=== PATIENT | female | born 1950 | race Caucasian/White ===

== ENCOUNTER → 2023-12-16 13:12 | Outpatient (REF) | payer MEDICARE, OTHER, SELFPAY | LOC: WDC 13:12 | PROVIDERS: ATTENDING PHYSICIAN Family Medicine | DX: Z12.31 Encounter for screening mammogram for malignant neoplasm of breast (principal) | CPT/HCPCS: 77063; 77067 ==

== ENCOUNTER 2024-10-18 19:27 | Emergency (ER) | payer MEDICARE, OTHER, SELFPAY ==
[2024-10-18 19:30] VITALS: BP 196/99
[2024-10-18 19:47] LABS: Hematocrit 40.5 % (37.0-47.0); Hemoglobin 14.2 g/dL (12.0-16.0); Mean Corp Hgb Conc. 35.1 g/dL (33.0-37.0); Mean Corpuscular Volume 92.3 fL (81.0-99.0); Nucleated Red Blood Cells % 0 %; Platelet Count 205 10^3/uL (130-400); Red Cell Dist. Width 12.8 % (11.5-14.5)
[2024-10-18 20:04] LABS: ALT (SGPT) 31 U/L (0-35); AST (SGOT) 26 U/L (14-36); Albumin 4.8 g/dl (3.5-5.0); Alkaline Phosphatase 74 U/L (38-126); Blood Urea Nitrogen 19 mg/dl (7-17); Calcium 9.3 mg/dl (8.4-10.2); Carbon Dioxide 20 mmol/L (22-30); Chloride 110 mmol/L (98-107); Glucose 109 mg/dl (70-99); Lipase 72 U/L (23-300); Potassium 4.2 mmol/L (3.5-5.1); Sodium 137 mmol/L (135-145); Total Protein 7.7 g/dl (6.3-8.2); eGFR > 60.00
[2024-10-18 20:44] VITALS: BP 160/83
[2024-10-18 21:00] VITALS: BP 182/82
[2024-10-18 22:00] VITALS: BP 164/77
--- NOTE | 2024-10-18 22:42 | ED.GENMED ---
History of Present Illness
<Adrian Stapleton PA-C - Last Filed: 10/19/24 16:35>
General
Chief Complaint: Abdominal Pain
Time Seen by Provider: 10/18/24 20:48
History of Present Illness
History of Present Illness:
74-year-old female with history of hypertension and gastric ulcers presents to the emergency department for evaluation of generalized abdominal discomfort that seems to wax and wane over the past several days. No obvious factors that palliate or
provoke her symptoms. She does note that pain seem to worsen after eating [place] with Bolognese sauce tonight. Prior abdominal surgery includes partial gastrectomy due to a stomach ulcer approximately 15 years ago as well as relatively recent
appendectomy with partial cecectomy. No fevers, chills, sweats, nausea, vomiting, or diarrhea.
Past History
<Adrian Stapleton PA-C - Last Filed: 10/19/24 16:35>
Past History
ED Past Medical History: HTN
ED Past Surgical History: Other (Partial gastrectomy)
Social History
Tobacco: Non-smoker
Alcohol: Occasional
Drug: None
Personal:
Living: with family
Review of Systems
<Adrian Stapleton PA-C - Last Filed: 10/19/24 16:35>
Review of Systems
Allergies reviewed?: Yes
All Other Systems: ROS reviewed and negative except as documented in HPI and ROS
Phy Exam
<Adrian Stapleton PA-C - Last Filed: 10/19/24 16:35>
Physical Exam
Physical Exam:
GEN: Well appearing, NAD, WDWN
HEENT: Oral mucosa moist, no scleral icterus
Cardiac: Regular rate
Lung: No respiratory distress, no tachypnea
Abdomen: Soft, moderate epigastric tenderness, no rigidity or peritoneal sign
MSK: No gross deformity or injuries
Skin: Good color, no pallor or jaundice, no rashes
Neuro: AO x3, moves all extremities freely
Psych: Calm, cooperative
Course
<Adrian Stapleton PA-C - Last Filed: 10/19/24 16:35>
Orders/Labs/Results
Orders:
Orders
10/18/24 19:38
Complete Blood Count/With Diff Urgent
Comprehensive Metabolic Panel Urgent
Lipase Urgent
10/18/24 21:46
US Abdomen Complete/Upper Urgent
Comment:
Reason For Exam: biliary colic
10/18/24 22:44
Ketorolac [Toradol] 30 mg IM NOW STA
10/18/24 23:14
Oxycodone [Roxicodone] 5 mg PO NOW STA
Abnormal Lab Results
10/18/24
19:38
MCH 32.3 H pg
(27.0-31.0)
Chloride 110 H mmol/L
(98-107)
Carbon Dioxide 20 L mmol/L
(22-30)
BUN 19 H mg/dl
(7-17)
Glucose 109 H mg/dl
(70-99)
10/18/24 19:38
10/18/24 19:38
Vital Signs
Initial and Last Documented VS:
Initial Vital Signs
Temp Pulse Resp BP Pulse Ox
98.1 F 70 20 196/99 97
10/18/24 19:30 10/18/24 19:30 10/18/24 19:30 10/18/24 19:30 10/18/24 19:30
Last Documented Vital Signs
Temp Pulse Resp BP Pulse Ox
98.1 F 58 15 139/74 94
10/18/24 19:30 10/19/24 01:00 10/19/24 01:00 10/19/24 01:00 10/19/24 01:00
<Kristin Bolaños PA-C - Last Filed: 10/19/24 00:49>
Orders/Labs/Results
Orders:
Orders
10/18/24 19:38
Complete Blood Count/With Diff Urgent
Comprehensive Metabolic Panel Urgent
Lipase Urgent
10/18/24 21:46
US Abdomen Complete/Upper Urgent
Comment:
Reason For Exam: biliary colic
10/18/24 22:44
Ketorolac [Toradol] 30 mg IM NOW STA
10/18/24 23:14
Oxycodone [Roxicodone] 5 mg PO NOW STA
Abnormal Lab Results
10/18/24
19:38
MCH 32.3 H pg
(27.0-31.0)
Chloride 110 H mmol/L
(98-107)
Carbon Dioxide 20 L mmol/L
(22-30)
BUN 19 H mg/dl
(7-17)
Glucose 109 H mg/dl
(70-99)
10/18/24 19:38
10/18/24 19:38
Vital Signs
Initial and Last Documented VS:
Initial Vital Signs
Temp Pulse Resp BP Pulse Ox
98.1 F 70 20 196/99 97
10/18/24 19:30 10/18/24 19:30 10/18/24 19:30 10/18/24 19:30 10/18/24 19:30
Last Documented Vital Signs
Temp Pulse Resp BP Pulse Ox
98.1 F 58 15 139/74 94
10/18/24 19:30 10/19/24 01:00 10/19/24 01:00 10/19/24 01:00 10/19/24 01:00
<Adrian Stapleton PA-C - Last Filed: 10/19/24 16:35>
MDM/Problems Addressed
MDM/Problems Addressed:
Patient's ultrasound was done suspected etiology to her symptoms. Pain did not resolve with Toradol thus we will inspector electromechanical oxycodone. To high suspicion that the patient require admission for surgical consultation given the persistence of her pain
however if pain is resolved with oxycodone certainly would be suitable for outpatient surgical follow-up. Will sign out to overnight stocker team pending reassessment
<Adrian Stapleton PA-C - Last Filed: 10/19/24 16:35>
*Pulse Oximetry
SaO2: 96
Oxygen Mode of Delivery: Room air
<Kristin Bolaños PA-C - Last Filed: 10/19/24 00:49>
*Pulse Oximetry
Patient hypoxic: no
*Critical Care Note
Total Time (30-74mins, 75-104mins- exclusive of procedures): Not Applicable
<Kristin Bolaños PA-C - Last Filed: 10/19/24 00:49>
Update Note
Update Note:
I received patient in signout. On my evaluation, patient is well-appearing in no acute distress. She rates her abdominal pain a 5 out of 10 but states it is much worse earlier and she is feeling better. I did discuss plan with Jose SHIRLEY prior to
shift end. I did offer admission for surgical consult and further pain control. We had a long discussion. Patient feels that she can go home at this point and will continue to monitor her symptoms and return if symptoms worsen. Discussed dietary
changes. Patient given outpatient follow-up for general surgery.
ED Attending Note
<Adrian Stapleton PA-C - Last Filed: 10/19/24 16:35>
-
Portions of this chart may have been created with voice recognition software.� Occasional wrong word or��sound alike� substitutions may have occurred due to the inherent limitations of voice recognition software.
Discharge Plan
Departure
Patient Disposition: Home (Routine Discharge)
Date of Disposition: 10/19/24
Time of Disposition: 00:47
Patient with high blood pressure during this ER visit?: Yes
Condition: Good
Discharge Problem:
Cholelithiasis
Instructions: Gallstones - ED (DC), BLOOD PRESSURE
Prescriptions:
No Action
losartan 100 mg Tablet
100 mg PO DAILY
multivitamin Tablet
1 tab PO DAILY
Referrals:
Susu Friedman MD [Family Provider, Family Practice]
Leandro Jackson MD [Active, Surgical]
Activity Restrictions/Additional Instructions:
As discussed, your blood work is unremarkable. Your ultrasound showed gallstones. Please call the attached number to schedule appointment to see general surgery as outpatient Dr. Jackson's office. Oxycodone has been sent to your pharmacy you can
take 1 tablet every 4-6 hours as needed for pain. Please stick to a bland nonfatty diet for the next few days. Please continue to monitor your symptoms.
PLEASE RETURN TO THE ER SHOULD YOU DEVELOP FEVERS OR CHILLS, ACUTE WORSENING RETURN OF YOUR PAIN, SURROUNDING REDNESS, CHEST PAIN, SHORTNESS OF BREATH, INTRACTABLE NAUSEA OR VOMITING, OR ANY OTHER SIGNS OR SYMPTOMS WORRISOME TO YOU.
Interventions
Interventions:
*Risk Screen - Suicide Last Done: 10/18/24 20:32
*General Assessment Last Done: 10/18/24 19:30
*Neglect/Abuse Screening Last Done: 10/18/24 20:32
*ED- Fall Risk Assessment Last Done: 10/18/24 20:32
*ED COVID-19 Vaccine History Last Done: 10/18/24 20:32
*Nursing Disposition Last Done: 10/19/24 01:03
FX-Wczneu-Fbxueexdcv Assessment Last Done: 10/18/24 20:32
Discharge Date and Time
Discharge Date/Time: 10/19/24 01:08
Print Language: CROATIAN
[2024-10-18] MEDS: TORADOL 30 MG IM (22:55)
[2024-10-18] MEDS: ROXICODONE 5 MG PO (23:19)
[2024-10-19] VITALS: BP 150/67
[2024-10-19 01:00] VITALS: BP 139/74
== END 2024-10-19 01:08 | disposition home or self-care (01) ==
LOC: EMR 19:27
PROVIDERS: Emergency Medicine; EMERGENCY PHYSICIAN Student in an Organized Health Care Education/Training Program; FAMILY PHYSICIAN Family Medicine
DX: K80.20 Calculus of gallbladder without cholecystitis without obstruction (principal); I10 Essential (primary) hypertension; Z90.3 Acquired absence of stomach [part of]; Z90.49 Acquired absence of other specified parts of digestive tract
CPT/HCPCS: 99284; 96372; 76700; 80053; 83690; 85025

== ENCOUNTER 2024-10-19 16:53 | Day surgery (SDC) | payer MEDICARE, OTHER, SELFPAY ==
[2024-10-19] VITALS (17 sets, daily range): BP systolic 119–189; BP diastolic 65–97; BMI 29.5; BMI 28.5
--- NOTE | 2024-10-19 11:41 | ED.GENMED ---
History of Present Illness
General
Chief Complaint: Abdominal Pain
Source: patient and spouse
Exam Limitations: none
Time Seen by Provider: 10/19/24 11:41
Nursing documentation reviewed up to this point in time: agreed with
History of Present Illness
History of Present Illness:
The patient is a pleasant 74-year-old female with a past medical history of high blood pressure who comes in with complaints of 2 to 3 days of upper abdominal pain radiating towards her right shoulder. Patient reports associated nausea. She denies
fevers and chills. Patient reports she was evaluated in the ED yesterday and diagnosed with a gallstone. She reports she felt better went home, but ever since waking up today, the pain is severe and is associated with nausea. Pain has been
constant.
Past History
Past History
ED Past Medical History: HTN
ED Past Surgical History: Other (Partial gastrectomy)
Social History
Tobacco: Non-smoker
Alcohol: Occasional
Drug: None
Personal:
Living: with family
Family History
Family History: Other
Review of Systems
Review of Systems
Allergies reviewed?: Yes
All Other Systems: ROS reviewed and negative except as documented in HPI and ROS
Constitutional: Reports no symptoms
EENT: Reports no symptoms
Respiratory: Reports no symptoms
Cardiac: Reports no symptoms
ABD/GI: Reports abdominal pain and nausea
: Reports no symptoms
Musculoskeletal: Reports no symptoms
Neurological: Reports no symptoms
Endocrine: Reports no symptoms
Hematologic/Lymphatic: Reports no symptoms
Psychiatric: Reports no symptoms
Phy Exam
Physical Exam
Physical Exam:
Physical Exam
General: no apparent distress, not acutely ill
Neck: supple. no meningeal signs. normal psoterior pharynx
Heart: s1/s2 regular rate and rhythm, no murmur. equal radial pulses.
Lungs: no acute respiratory distress. clear bilaterally
Abdomen: Normal bowel sounds. Soft. Right upper quadrant tenderness without rebound or guarding
Neuro: alert and oriented. no focal neurological deficits
Skin: no rash
Psychiatric: well kept. interactive and cooperative
Extremities: no edema. no calf tenderness. negative homans. good distal pulses
Course
Orders/Labs/Results
Orders:
Orders
10/19/24 11:42
US Abdomen Limited Urgent
Reason For Exam: upper ab pain
10/19/24 12:24
Complete Blood Count/With Diff Urgent
Comprehensive Metabolic Panel Urgent
Lipase Urgent
10/19/24 12:42
Morphine Sulfate 4 mg .ROUTE .STK-MED ONE
Ondansetron Injectable [Zofran] 4 mg .ROUTE .STK-MED ONE
10/19/24 12:46
Morphine Sulfate 4 mg IV NOW STA
Ondansetron Injectable [Zofran] 4 mg IV NOW STA
Abnormal Lab Results
10/19/24
12:24
RBC 4.02 L 10^6/uL
(4.20-5.40)
MCH 32.6 H pg
(27.0-31.0)
Lymphocytes % 19.5 L %
(20.5-51.1)
Chloride 108 H mmol/L
(98-107)
Glucose 107 H mg/dl
(70-99)
10/19/24 12:24
10/19/24 12:24
Vital Signs
Initial and Last Documented VS:
Initial Vital Signs
Temp Pulse Resp BP Pulse Ox
98.6 F 61 18 189/97 97
10/19/24 11:16 10/19/24 11:16 10/19/24 11:16 10/19/24 11:16 10/19/24 11:16
Last Documented Vital Signs
Temp Pulse Resp BP Pulse Ox
98.6 F 61 18 155/71 95
10/19/24 11:16 10/19/24 11:16 10/19/24 11:16 10/19/24 15:07 10/19/24 15:15
MDM/Problems Addressed
Differential Diagnosis Includes:
Biliary colic, acute cholecystitis, acute pancreatitis
MDM/Problems Addressed:
Patient presents with acute right upper quadrant pain
Acute Exacerbation and/or Progression of Chronic Illness:
Patient is acutely hypertensive, however, there is no sign of heart failure or stroke. Blood pressure is improved now that we have given her something for pain.
Acute Exacerbation and/or Progression of Chronic Illness: HTN
*Radiology
Radiology exam reviewed: radiology read reviewed
*Pulse Oximetry
SaO2: 97
Oxygen Mode of Delivery: Room air
Patient hypoxic: no
Comment: 97% on room air
*EKG
Interpreted by ED Provider?: NA
*Mold Repair Technician Interpretation
Rate: normal
Interpretation: normal
Rhythm: sinus
*Critical Care Note
Total Time (30-74mins, 75-104mins- exclusive of procedures): Not Applicable
Data Reviewed
Review of Other/Old Records Reveals: Radiology Studies (Ultrasound reviewed from yesterday which shows gallstone in neck of gallbladder)
Source: patient and spouse
Patient Management
Social determinants of health affecting care: Living situation and Strong social support
Discussion with other providers: Other (Dr. Jackson made aware of the patient. He reports that when he can, he will come to the ED to evaluate patient)
ED Attending Note
-
Portions of this chart may have been created with voice recognition software.� Occasional wrong word or��sound alike� substitutions may have occurred due to the inherent limitations of voice recognition software.
Discharge Plan
Departure
Patient Disposition: Other
Date of Disposition: 10/19/24
Time of Disposition: 15:30
Admit to: Med/Surg
Patient with high blood pressure during this ER visit?: Yes
Condition: Good
Covid-19: Not Applicable
Discharge Problem:
Biliary colic
Prescriptions:
No Action
losartan 100 mg Tablet
100 mg PO DAILY
multivitamin Tablet
1 tab PO DAILY
Referrals:
Susu Friedman MD [Family Provider, Family Practice]
Interventions
Interventions:
*Risk Screen - Suicide Last Done: 10/19/24 11:16
*General Assessment Last Done: 10/19/24 11:16
*Neglect/Abuse Screening Last Done: 10/19/24 11:16
*ED- Fall Risk Assessment Last Done: 10/19/24 12:27
*ED COVID-19 Vaccine History Last Done: 10/19/24 12:27
KV-Rorvdi-Ytojiqzapt Assessment Last Done: 10/19/24 11:25
Discharge Date and Time
Print Language: FRENCH
[2024-10-19 12:40] LABS: Hematocrit 37.9 % (37.0-47.0); Hemoglobin 13.1 g/dL (12.0-16.0); Mean Corp Hgb Conc. 34.6 g/dL (33.0-37.0); Mean Corpuscular Volume 94.3 fL (81.0-99.0); Nucleated Red Blood Cells % 0 %; Platelet Count 181 10^3/uL (130-400); Red Cell Dist. Width 12.7 % (11.5-14.5)
[2024-10-19] MEDS: MORPHINE SULFATE 4 MG IV (12:52)
[2024-10-19] MEDS: ZOFRAN 4 MG IV ×2 (12:53→19:58)
[2024-10-19 12:54] LABS: ALT (SGPT) 30 U/L (0-35); AST (SGOT) 24 U/L (14-36); Albumin 4.2 g/dl (3.5-5.0); Alkaline Phosphatase 63 U/L (38-126); Blood Urea Nitrogen 17 mg/dl (7-17); Calcium 9.1 mg/dl (8.4-10.2); Carbon Dioxide 26 mmol/L (22-30); Chloride 108 mmol/L (98-107); Estimated Creatinine Clearance 87 ml/min; Glucose 107 mg/dl (70-99); Lipase 47 U/L (23-300); Potassium 4.0 mmol/L (3.5-5.1); Sodium 137 mmol/L (135-145); Total Protein 6.9 g/dl (6.3-8.2); eGFR > 60.00
--- NOTE | 2024-10-19 16:22 | W.PN.UPDATE ---
Addendum entered and electronically signed by Leandro Jackson MD 10/19/24 16:28:
SHx antrectomy for PUD and lap appy more recently, supraumbilical midline scar 6cm, well healed
Original Note:
Update Note
Progress Note Update
Pt seen and evaluated at bedside. 3 days of abd pain, intermittent but today it is persistent. In ED 2 days ago and DC'ed but returned due to ongoing pain. On exam there is ttp to epigastrium and less to the RUQ. AFVSS and labs unremarkable. US
shows stones but no stigmata of ACC. Plan to admit for obs overngiht and tentatively for lap stefany tomorrow. D/w pt and at bedside. Full consult note to follow.
[2024-10-19] MEDS: LOVENOX 40 MG SC (17:56)
[2024-10-19] MEDS: DILAUDID 1 MG IV (17:56)
[2024-10-19] MEDS: NORMOSOL-R/PLASMALYTE-A 1000 IV (17:57)
[2024-10-20] VITALS (11 sets, daily range): BP systolic 133–161; BP diastolic 66–87
[2024-10-20] MEDS: ZOFRAN 4 MG IV ×3 (02:01→21:10)
[2024-10-20] MEDS: DILAUDID 1 MG IV ×3 (02:01→21:11)
[2024-10-20] MEDS: NORMOSOL-R/PLASMALYTE-A 1000 IV (04:04)
[2024-10-20] MEDS: NSS (PRESERVATIVE FREE) 10 ML IV (08:08)
[2024-10-20] MEDS: PROTONIX IV 40 MG IV (08:08)
[2024-10-20 08:57] LABS: Hepatitis C Antibody Negative (Negative)
[2024-10-20] MEDS: LEVAQUIN 150 IV (09:36)
--- NOTE | 2024-10-20 09:54 | HPS.HSE ---
Addendum entered and electronically signed by Red Pretty MD 10/20/24 10:34:
Patient seen and examined.
Patient is a 74 yo F with a PMH HTN, HLD, s/p open partial gastrectomy for ulcerative disease in 2009 at [facility], and s/p laparoscopic appendectomy by Dr. Ry Olguin in 2022. Ms. Stevenson presents with intermittent upper abdominal pain over
the past week. She states that her symptoms began initially last Wednesday after eating an arugula salad. Abdominal pain was intermittent and lingered throughout the next few days. Abdominal pain located in the epigastrium with radiation to the RUQ
and LUQ. No further clear association with oral intake. Some radiation of pain to the RIGHT shoulder. Limited to oral intake during this time. On Wednesday (10/18) she states that her abdominal pain significantly worsened prompting presentation
to the ED. She was diagnosed with symptomatic cholelithiasis at that time. Her abdominal discomfort improved with medications. She was ultimately discharged with outpatient follow-up. Since discharge her abdominal pain has returned prompting
brief presentation. Associated nausea, but no episodes of vomiting. No fevers or chills. She denies any jaundice, pale stools, or tea colored urine.
Gen: NAD
Abd: soft, mild tenderness in upper abdomen, ND, non-peritoneal, upper midline incision well healed
Labs and US imaging reviewed
Patient is a 74 yo F p/w symptomatic cholelithiasis possible acute cholecystitis
The natural history and pathophysiology of biliary stone disease was discussed. Anatomy was reviewed. Workup thus far including labs and imaging were reviewed. Options for management were reviewed. Given her persistent symptoms recommend
cholecystectomy.
Plan for a laparoscopic cholecystectomy with possible cholangiogram. The procedure itself, as well as the risks, benefits, and alternatives was discussed. Specifically, we discussed the risk of bleeding, infection, injury to surrounding structures
(bowel, bile ducts), CBD injury, need for open procedure. Typical postprocedural recovery including pain management and the 10 to 20% risks of fluctuations of GI function were discussed. All questions answered. Consent signed.
-- Lap stefany with IOC
-- NPO, IVF
-- Antibiotics: Levo Flagyl
Original Note:
Family Physician
-
Family Physician: Susu Friedman
Chief Complaint
-
abdominal pain
History of Present Illness
Ms Stevenson is a 74 yo female with a h/o HTN, HLD and appendectomy 2022, and partial gastrectomy for a calcified ulcer in 2009 who presented yesterday through the ED for ongoing intermittent epigastric pain. She notes that about one week ago, she
had severe pain to the epigastrium after dining out. It persisted into the next day but then improved. The pain returned again on 3-4 days ago and has been recurrent on and off since sometimes radiating into her right shoulder and back and sometimes
over to the RUQ. She was out of state visiting family in [place] and waited until she returned to present to the ED. She has tolerated very little oral intake over the past week with occasional nausea but no vomiting. She denies acholic stools or
dark urine. She denies fevers or chills. She is nontender on exam. She initially presented on 10/18/24 through the ED with gallstones noted on US without evidence of cholecystitis at that time and was discharged to home with instructions to follow
with surgery as an outpatient for biliary colic. Unfortunately, her symptoms recurred causing her to present yesterday once again through the ED for evaluation.
Medical History
Past Medical History
Past Medical History: Reports HTN, Hypercholesterolemia and Other (calcified ulcer tx surgically in 2009)
Past Surgical History: Reports Appendectomy (12/2022) and Other (partial gastrectomy/antrectomy 2009)
Social History
Tobacco: Non-smoker
Alcohol: Occasional
Personal:
Family History
Family History: Cancer (mother and uncle with colon ca, uncle with esophageal ca)
Allergies / Home Medications
Allergies reflects when Allergies were last updated in [employer].
Home Medications with original date entered in [employer]
Allergy/Medication List:
Patient Allergies
Allergy/AdvReac Type Severity Reaction Status Date / Time
amoxicillin Allergy throat Verified 10/19/24 11:16
closing
fentanyl AdvReac skin Verified 10/19/24 11:16
crawling
�Medication �Instructions �Recorded �Confirmed �Type
losartan 100 mg tablet 100 mg PO DAILY Blood Pressure 10/18/24 10/19/24 History
multivitamin 1 tab PO DAILY Supplement 10/19/24 10/19/24 History
Review of Systems
-
History Source: Patient
A 12 point ROS was completed and negative except as noted: Yes
Physical Exam
Vital Signs
Vital Signs
Temp Pulse Resp BP Pulse Ox
98 F 59 16 133/66 98
10/20/24 07:40 10/20/24 07:40 10/20/24 07:40 10/20/24 07:40 10/20/24 07:40
Physical Exam
General: Well Developed and Well Nourished
HEENT: NormoCephalic and Moist mucous membranes
Respiratory: Non Labored Respirations
GI: Soft, Non Tender and Non Distended
Skin: Warm and Dry
Neuro: Awake, Alert and AO x 3
Psych: Calm
Laboratory Results
-
10/19/24 12:24
10/19/24 12:24
Laboratory Results
Total Bilirubin 0.9 mg/dl (0.2-1.3) 10/19/24 12:24
AST 24 U/L (14-36) 10/19/24 12:24
ALT 30 U/L (0-35) 10/19/24 12:24
Alkaline Phosphatase 63 U/L (38-126) 10/19/24 12:24
Lipase 47 U/L (23-300) 10/19/24 12:24
Impression/Plan
-
IMPRESSION: Ms Stevenson is a 74 yo female with a h/o HTN, HLD and appendectomy 2022, and partial antrectomy/gastrectomy for a calcified ulcer in 2009 who presented yesterday through the ED for ongoing intermittent epigastric pain over the past week.
She initially presented on 10/18/24 through the ED with gallstones noted on US without evidence of cholecystitis at that time and was discharged to home with instructions to follow with surgery as an outpatient for biliary colic. Unfortunately, her
symptoms recurred causing her to present yesterday once again through the ED for evaluation. US on 10/19 again with gallstones noted with mild extrahepatic biliary dilatation although no new gallbladder wall thickening or pericholecystic edema. No
leukocytosis. Normal LFT's. Afebrile, VSS. Suspect recurrent biliary colic vs possible acute calculous cholecystitis.
PLAN:
NPO for OR today for laparoscopic cholecystectomy with IOC
Start ABX (levaquin/flagyl) preoperatively for empiric coverage
Analgesics/antiemetics prn
SCDs for VTE ppx
--- NOTE | 2024-10-20 09:56 | W.SUR.PREOP ---
Pre-Operative Surgical Note
-
I have examined this patient prior to the performance of the scheduled procedure.
The patient's condition is unchanged from the time of the current History and
Physical and the patient is able to undergo the scheduled procedure.
[2024-10-20] MEDS: FLAGYL 500 MG 100 IV ×2 (11:23→17:04)
--- NOTE | 2024-10-20 15:20 | W.IMMPOSTOP ---
Surgical Immed Post Op Note
-
Primary Surgeon: Maria De Jesus
Assisting Surgeon: None
Pre-op Diagnosis: Cholecystitis
Post-op Diagnosis: Cholecystitis
Procedure Performed: Laparoscopic cholecystectomy with IOC
Anesthesia Type: General
Specimen / Cultures:
1. Gallbladder
Estimated Blood Loss: 3 cc
Complications: None
Operative Findings:
1. Acutely inflamed GB, omental adhesions, distension, wall thickening, small black stones
2. Critical view of safety, IOC without clear filling defect, dilated CBD, contrast emptying into duodenum
3. Duct taken with clips and Endoloop, artery with clips
[2024-10-20] MEDS: LOVENOX 40 MG SC (17:05)
[2024-10-21] MEDS: FLAGYL 500 MG 100 IV (00:52)
[2024-10-21] MEDS: NORMOSOL-R/PLASMALYTE-A 1000 IV (00:57)
[2024-10-21] MEDS: DILAUDID 1 MG IV ×2 (01:04→08:10)
[2024-10-21 03:24] VITALS: BP 130/70
[2024-10-21 07:52] LABS: Hematocrit 34.9 % (37.0-47.0); Hemoglobin 12.1 g/dL (12.0-16.0); Mean Corp Hgb Conc. 34.7 g/dL (33.0-37.0); Mean Corpuscular Volume 94.8 fL (81.0-99.0); Platelet Count 161 10^3/uL (130-400); Red Cell Dist. Width 12.3 % (11.5-14.5)
[2024-10-21 08:02] VITALS: BP 160/79
[2024-10-21] MEDS: PROTONIX IV 40 MG IV (08:03)
[2024-10-21] MEDS: LEVAQUIN 150 IV (08:03)
[2024-10-21] MEDS: NSS (PRESERVATIVE FREE) 10 ML IV (08:03)
[2024-10-21 08:27] LABS: ALT (SGPT) 114 U/L (0-35); AST (SGOT) 94 U/L (14-36); Albumin 3.8 g/dl (3.5-5.0); Alkaline Phosphatase 88 U/L (38-126); Blood Urea Nitrogen 11 mg/dl (7-17); Calcium 8.8 mg/dl (8.4-10.2); Carbon Dioxide 25 mmol/L (22-30); Chloride 105 mmol/L (98-107); Estimated Creatinine Clearance 74 ml/min; Glucose 101 mg/dl (70-99); Potassium 3.9 mmol/L (3.5-5.1); Sodium 136 mmol/L (135-145); Total Protein 6.3 g/dl (6.3-8.2); eGFR > 60.00
[2024-10-21] MEDS: FLAGYL 500 MG IV ×2 (10:14→10:38)
[2024-10-21 10:19] VITALS: BP 136/73
[2024-10-21] MEDS: TYLENOL 650 MG PO (10:20)
[2024-10-21 11:22] VITALS: BP 128/72
--- NOTE | 2024-10-21 12:44 | W.PN.GS2 ---
Addendum entered and electronically signed by Red Pretty MD 10/21/24 13:33:
Patient seen and examined.
Reports some abdominal soreness as well as a headache. Nausea yesterday evening, none currently. Passing flatus, no BM. Afebrile.
Gen: NAD
Abd: soft, mild tenderness, ND, non-peritoneal, incisions c/d/i - no erythema, ecchymosis or drainage
Patient is a 72 yo F presenting with cholecystitis now POD #1 lap stefany with normal IOC
AFVSS
No leukocytosis
Bilirubin wnl, mild transaminitis (not unexpected)
Plan:
-- Low fat diet
-- Analgesics prn pain
-- No further ABX
-- Tentative d/c later today if pain well managed and tolerating diet
Original Note:
Today's Communication / Plan
-
d/c planning
Assessment / Plan
-
72-year-old female presenting with cholecystitis now POD #1 lap stefany with normal IOC
AFVSS
No leukocytosis
Bilirubin wnl, mild transaminitis (not unexpected)
Plan:
Low fat diet
Analgesics prn pain
No further ABX
Tentative d/c later today if pain well managed and tolerating diet
Subjective Data
-
Date of Service: October 21, 2024
Pt seen and examined at bedside with Dr. Pretty. Nausea yesterday but none today. Denies vomiting. Some incisional soreness and a headache but both improving. Passing flatus.
Objective Data
-
Intake and Output
10/20/24 10/21/24 10/22/24
06:59 06:59 06:59
Intake Total 1200 / 1200 1570 / 1570
Balance 1200 / 1200 1570 / 1570
Intake:
Oral fluids 120 / 120
IV fluids (Total) 1200 / 1200 1350 / 1350
normosol 150 / 150
IV piggybacks 100 / 100
Other:
Number of approximated MODERATE 2 2
amounts of urine
Number of approximated LARGE 1
amounts of urine
Vital Signs
Temp Pulse Resp BP Pulse Ox
98.4 F 70 16 128/72 92
10/21/24 11:22 10/21/24 11:22 10/21/24 11:22 10/21/24 11:22 10/21/24 11:22
Lab Results
10/21/24 06:59
10/21/24 06:59
Calcium 8.8 mg/dl (8.4-10.2) 10/21/24 06:59
Total Bilirubin 0.8 mg/dl (0.2-1.3) 10/21/24 06:59
AST 94 U/L (14-36) H 10/21/24 06:59
ALT 114 U/L (0-35) H 10/21/24 06:59
Alkaline Phosphatase 88 U/L (38-126) 10/21/24 06:59
Total Protein 6.3 g/dl (6.3-8.2) 10/21/24 06:59
Albumin 3.8 g/dl (3.5-5.0) 10/21/24 06:59
Physical Exam
-
NAD
ABD soft, expected incisional tenderness, nd
Incisions well approximated, intact glue, no erythema
--- NOTE | 2024-10-21 15:13 | W.DS.TRANS ---
DC Summary - Survey Statistician
-
Discharge Instructions:
Discharge Diagnosis/Procedures cholecystitis status post laparoscopic
cholecystectomy
Diet As tolerated
Additional Diets If you have loose stools after surgery, switch
to a low fat diet
Activity No strenuous activity
Additional Activity Do not lift over 20lbs for the next 2-3 weeks
Driving Restrictions No driving for 24 hours
Bathing Restrictions OK to Shower
Wound Care Allow the glue to flake off your incisions on
its own over the next 2-3 weeks
Instructions:
Stand-Alone Forms:
Changes to Home Medications: No
Discharge Medications:
DC Medications w/original date entered in [employer]
losartan 100 mg tablet 100 mg PO DAILY Blood Pressure 10/18/24
multivitamin 1 tab PO DAILY Supplement 10/19/24
acetaminophen 325 mg tablet 650 mg (2 x 325 mg) PO Q4HPRN PRN mild pain #1 tab 10/21/24
suzetrigine 50 mg tablet (Journavx) 50 mg PO Q12H #8 tabs 10/21/24
Home Medication Changes
Pending Results: No
[2024-10-21 15:48] VITALS: BP 131/63
== END 2024-10-21 17:35 | disposition home or self-care (01) ==
LOC: SDS 16:53
PROVIDERS: Surgery; ATTENDING PHYSICIAN Surgery; EMERGENCY PHYSICIAN Emergency Medicine; FAMILY PHYSICIAN Family Medicine
DX: K80.20 Calculus of gallbladder without cholecystitis without obstruction (principal); K66.0 Peritoneal adhesions (postprocedural) (postinfection); Z90.3 Acquired absence of stomach [part of]
CPT/HCPCS: 47563; 74300; 76000; 76705; 80053; 83690; 85025; 85027; 86803; 88304; 96374; 96375; 99284; J1610